=== PATIENT | female | born 1960 | race Caucasian/White ===

== ENCOUNTER → 2020-07-21 | Outpatient (CLI) | payer OTHER ==
[~2020-07-21] MED LIST: B CO1TAB14 PO; BIFI4CAP PO; CoQ10 PO; Collagen PO; FISH1CAP PO; FLUT9.9S NS; GARLIQUE PO; LISI1TAB23 PO; MAGN250T8 PO; MULT-449 PO; POTA99TA3 PO; Turmeric PO; allegra PO
[2020-07-21 09:58] LABS: ALANINE AMINOTRANSFERASE 41 U/L (12-78); ALBUMIN 4.3 g/dL (3.4-5.0); ANION GAP 3 mmol/L (5-15); CALCIUM 9.3 mg/dL (8.5-10.1); CHLORIDE 97 mmol/L (98-107)
[2020-07-21 10:00] LABS: ALKALINE PHOSPHATASE 59 U/L (45-117); BILIRUBIN,TOTAL 0.6 mg/dL (0.2-1.0); CREATININE 0.62 mg/dL (0.55-1.02); TOTAL PROTEIN 7.7 g/dL (6.4-8.2)
== END | disposition home or self-care (01) ==
LOC: STAR 09:02
PROVIDERS: ATTEND Internal Medicine Geriatric Medicine
DX: Z01.812 Encounter for preprocedural laboratory examination (principal); D12.0 Benign neoplasm of cecum; Z20.822 Contact with and (suspected) exposure to COVID-19
CPT/HCPCS: 36415; 80053; U0003; U0005

== ENCOUNTER 2020-07-26 06:37 | Day surgery (SDC) | payer OTHER ==
[~2020-07-26] VITALS: Ht 162.6 cm; Wt 58.0 kg
[2020-07-26] MEDS ORDERED: AMLO-150 PO (07:43)
[2020-07-26] MEDS ORDERED: LISI-170 PO (07:44)
[2020-07-26 07:46] VITALS: BP 154/89
[2020-07-26] MEDS ORDERED: CHLORHEXIDINE 15 ML UDC PO ONE (08:00)
[2020-07-26] MEDS ORDERED: LACTATED RINGERS 1,000 ML IV SCH (08:00)
[2020-07-26] MEDS ORDERED: PROPOFOL 50 ML ONE (08:04)
[2020-07-26] MEDS ORDERED: ACETAMINOPHEN 325 MG TABLET PO PRN (09:00)
[2020-07-26] MEDS ORDERED: FENTANYL PF 100 MCG/2ML IV PRN (09:00)
[2020-07-26] MEDS ORDERED: ONDANSETRON 2MG/ML, 2ML IVPush PRN (09:00)
== END 2020-07-26 10:45 | disposition home or self-care (01) ==
LOC: OUT 06:37
PROVIDERS: ATTEND Internal Medicine Geriatric Medicine
DX: D12.0 Benign neoplasm of cecum (principal); I10 Essential (primary) hypertension; Z88.2 Allergy status to sulfonamides; Z88.8 Allergy status to other drugs, medicaments and biological substances
CPT/HCPCS: 45381; 45385; 88305; J2704; J7120